=== PATIENT | female | born 1960 | race Asian ===

== ENCOUNTER 2018-12-12 20:21 | Emergency (ER) | payer SELFPAY ==
[~2018-12-12] VITALS: Ht 162.6 cm; Wt 72.2 kg
[2018-12-12 20:24] VITALS: BP 154/88; PULSE 81; RESP 20; Ht 162.6 cm; Wt 72.2 kg
== END 2018-12-12 20:40 | disposition left against medical advice (07) ==
LOC: E/R 20:21
DX: Z53.21 Procedure and treatment not carried out due to patient leaving prior to being seen by health care provider (principal)